=== PATIENT | male | born 1975 ===

== ENCOUNTER 2021-01-24 09:06 | Inpatient (IN) | payer OTHER ==
[~2021-01-24] VITALS: Ht 175.3 cm; Wt 95.8 kg
[2021-01-24 10:22] LABS: BASOPHILS ABSOLUTE AUTO 0.05 K/mm3 (0.00-0.23); BASOPHILS PERCENT AUTO 1 % (0-2); EOSINOPHILS ABSOLUTE AUTO 0.07 K/mm3 (0.00-0.68); EOSINOPHILS PERCENT AUTO 1 % (0-6); Hematocrit 45.7 % (37.0-53.0); Hemoglobin 15.9 g/dL (13.5-17.5); IMMATURE GRAN ABSOLUTE AUTO 0.02 K/mm3 (0.00-0.10); IMMATURE GRAN PERCENT AUTO 0 % (0-1); LYMPHOCYTES ABSOLUTE AUTO 2.35 K/mm3 (0.84-5.20); LYMPHOCYTES PERCENT AUTO 37 % (21-46); MONOCYTES PERCENT AUTO 6 % (4-13); Mean Corpuscular HGB 30.1 pg (26.0-34.0); Mean Corpuscular HGB Conc 34.8 g/dL (31.5-36.5); Mean Corpuscular Volume 86 fL (80-100); Mean Platelet Volume 9.6 fL (9.1-12.4); NEUTROPHILS ABSOLUTE AUTO 3.52 K/mm3 (1.96-9.15); NEUTROPHILS PERCENT AUTO 55 % (41-73); Platelet Count 302 K/mm3 (150-400); RDW Standard Deviation 37.7 fL (35.1-46.3); Red Blood Cell Count 5.29 M/mm3 (4.30-5.90); White Blood Cell Count 6.41 K/mm3 (4.00-11.30)
[2021-01-24 10:33] LABS: Alanine Aminotransfer (ALT/SGP 47 U/L (12-78); Alk Phos 137 U/L (50-136); Anion Gap 8 mmol/L (6-16); Aspartate Aminotrans (AST/SGOT 17 U/L (12-37); Bilirubin, Total 0.4 mg/dL (0.1-1.0); Blood Urea Nitrogen 13 mg/dL (8-24); Bun/Creatinine Ratio 19.5 (12.0-20.0); CO2, Blood 23 mmol/L (21-32); Calcium, Blood 8.9 mg/dL (8.5-10.1); Chloride, Blood 100 mmol/L (98-108); Creatinine, Blood 0.67 mg/dL (0.60-1.20); Glomerular Filtration Rate >60 (60-); Glucose, Blood 367 mg/dL (70-99); Potassium, Blood 4.1 mmol/L (3.5-5.5); Sodium, Blood 131 mmol/L (136-145); Troponin I 0.082 ng/mL (0.000-0.040)
[2021-01-24 13:13] LABS: SARS-Cov-2 (COVID-19) PCR, MMC NEGATIVE (NEGATIVE)
[2021-01-24 13:43] LABS: U Amphetamine Screen Not Detected; U Barbituate Screen Not Detected; U Benzodiazapine Screen Not Detected; U Buprenorphine Screen Not Detected; U Cannabinoids Screen Not Detected; U Cocaine Screen Not Detected; U Methadone Screen Not Detected; U Methamphetamine Screen Not Detected; U Opiates Screen Not Detected; U Oxycodone Screen Not Detected; U Phencyclidine Screen Not Detected; U Propoxyphene Screen Not Detected
[2021-01-24 14:23] LABS: International Normalized Ratio 0.94; Prothrombin Time Results 10.2 Sec (9.7-11.5)
--- NOTE | 2021-01-24 20:28 | NUR ---
RECEIVED REPORT FROM CELI SANCHEZ AT 1435; PT ARRIVED AT 1610 TO PCU ROOM 9 VIA BED ACCOMPANIED BY SENIOR ADMINISTRATIVE SUPPORT RN X2 AND PT'S AND PERSONAL EFFECTS; PT ON RA RECEIVING FLUIDS AND CONNECTED TO TELEMETRY MONITORING; PT DENIES DIFFICULTY BREATHING OR CHEST PAIN; PT 95KG AND 5'9"; PT RECOVERED IN PCU; R RADIAL ANGIO SITE WDL EACH TIME ASSESSED; TR BAND AIR VOLUME INCREMENTALLY REDUCED; 3ML AIR VOLUME REMAINING AT 1999; PT GIVEN EXTENSIVE CARDIAC EDUCATION AT THE BEDSIDE WITH AT BEDSIDE; PT DENIES ADDITIONAL CONCERNS AT THIS TIME.
--- NOTE | 2021-01-24 22:15 | NUR ---
REMAINING 3ML OF AIR IN TR BAND REMOVED AT APPROXIMETLY 2130. NO SIGNS OF BLEEDING SO TR BAND REMOVED AFTER 30 MIN AT 2300. SITE C/D/I. PULSE STRONG. VSS. WILL CONTINUE TO MONITOR.
[2021-01-25 04:10] LABS: BASOPHILS ABSOLUTE AUTO 0.03 K/mm3 (0.00-0.23); BASOPHILS PERCENT AUTO 1 % (0-2); EOSINOPHILS ABSOLUTE AUTO 0.09 K/mm3 (0.00-0.68); EOSINOPHILS PERCENT AUTO 2 % (0-6); Hemoglobin 14.8 g/dL (13.5-17.5); IMMATURE GRAN ABSOLUTE AUTO 0.01 K/mm3 (0.00-0.10); IMMATURE GRAN PERCENT AUTO 0 % (0-1); LYMPHOCYTES ABSOLUTE AUTO 2.17 K/mm3 (0.84-5.20); LYMPHOCYTES PERCENT AUTO 36 % (21-46); MONOCYTES ABSOLUTE AUTO 0.45 K/mm3 (0.16-1.47); MONOCYTES PERCENT AUTO 8 % (4-13); Mean Corpuscular HGB 29.4 pg (26.0-34.0); Mean Corpuscular HGB Conc 34.4 g/dL (31.5-36.5); Mean Corpuscular Volume 86 fL (80-100); Mean Platelet Volume 9.3 fL (9.1-12.4); NEUTROPHILS ABSOLUTE AUTO 3.29 K/mm3 (1.96-9.15); NEUTROPHILS PERCENT AUTO 54 % (41-73); Platelet Count 277 K/mm3 (150-400); RDW Coefficient Variation 11.9 % (11.7-14.2); Red Blood Cell Count 5.03 M/mm3 (4.30-5.90); White Blood Cell Count 6.04 K/mm3 (4.00-11.30)
[2021-01-25 04:34] LABS: Anion Gap 5 mmol/L (6-16); Blood Urea Nitrogen 8 mg/dL (8-24); CHOL/HDL RATIO 3.5; CO2, Blood 26 mmol/L (21-32); Calcium, Blood 8.1 mg/dL (8.5-10.1); Chloride, Blood 103 mmol/L (98-108); Cholesterol 176 mg/dL (50-200); Creatinine, Blood 0.73 mg/dL (0.60-1.20); Glomerular Filtration Rate >60 (60-); Glucose, Blood 231 mg/dL (70-99); HDL Cholesterol 51 mg/dL (>39); LDL/HDL RATIO 1.8; Low Density Lipoprotein Chol 93 mg/dL (0-110); Potassium, Blood 3.8 mmol/L (3.5-5.5); Sodium, Blood 134 mmol/L (136-145); Triglycerides 161 mg/dL (30-160); Very Low Density Lipoprot Chol 32 mg/dL (6-32)
--- NOTE | 2021-01-25 05:28 | NUR ---
SHIFT SUMMARY PATIENT FOUND TO BE A PLEASANT MAN WHO IS A&OX4, TY, AND FOLLOWING COMMANDS. VSS. STILL WITH TWO MORE HOURLY VS CHECKS FROM CATH PROCEDURE. 3ML OF AIR REMAINED IN R RADIAL ENTRY SITE TR BAND UPON START OF SHIFT AND WAS REMOEVED AT 2200 WITH NO SIGNS OF BLEEDING OR HEMATOMA. RIGHT RADIAL PULSE STRONG, GOOD COLOR TO HAND AND FULL SENSATION INTACT. DRESSING AND ARM BOARD IN PLACE. AT BEDSIDE. ON RA. NSR ON THE MONITOR. NO CHEST PAIN NOTED. VOIDING WELL PER URINAL. EDUCATED ON RAFIQ DIABETIC DIET AND FEELS STILL HUNGRY AFTER DINNER. SNACK GIVEN AND BEEN RESTING COMFORTABLY SINCE. NO CONCERNS AT THIS TIME. WILL CONTINUE TO MONITOR UNTIL DAY SHIFT RN ASSUMES CARE.
[2021-01-25] MEDS ORDERED: Aspirin EC81 MG PO (12:43)
[2021-01-25] MEDS ORDERED: ACET325 PO (12:43)
[2021-01-25] MEDS ORDERED: ATOR40TA PO (12:44)
[2021-01-25] MEDS ORDERED: CLOP75 PO (12:45)
[2021-01-25] MEDS ORDERED: METO25ER PO (12:46)
[2021-01-25] MEDS ORDERED: GLUCOTROL5 MG PO (12:46)
[2021-01-25] MEDS ORDERED: METF500 PO (12:47)
--- NOTE | 2021-01-25 14:03 | NUR ---
PATIENT AND PATIENT'S SPOUSE PROVIDED DISCHARGE INFO REGARDING FOLLOW UP PLANS, REASONS TO RETURN TO THE HOSPITAL, POST-ANGIO RADIAL SITE CARE AND PRECAUTIONS, AND MEDICATION INFORMATION. PATIENT AND PATIENT'S SPOSUE VERBALIZED UNDERSTANDING, NO SIGNS OF ACUTE DISTRESS. NO DISCHARGE/HEMATOMA NOTED AT RADIAL SITE. PATIENT DENIES CHEST PAIN THIS SHIFT, VSS. PATIENT ABLE TO AMBULATE TO PERSONAL VEHICLE WITH SPOUSE TO PROVIDE RIDE.
== END 2021-01-25 13:32 | disposition home or self-care (01) | DRG 247 ==
LOC: ER 09:06 → PCU 12:10 → ERHOLD 12:10 → PCU 15:58
PROVIDERS: Emergency Medicine; Nurse Practitioner Acute Care; Pharmacist; ADMIT Internal Medicine
PROC: 027034Z Dilation of Coronary Artery, One Artery with Drug-eluting Intraluminal Device, Percutaneous Approach (ICD-10-PCS; principal; 2021-01-24)
PROC: 4A023N7 Measurement of Cardiac Sampling and Pressure, Left Heart, Percutaneous Approach (ICD-10-PCS; 2021-01-24)
PROC: B2111ZZ Fluoroscopy of Multiple Coronary Arteries using Low Osmolar Contrast (ICD-10-PCS; 2021-01-24)
PROC: B245ZZ3 Ultrasonography of Left Heart, Intravascular (ICD-10-PCS; 2021-01-24)
DX: I21.4 Non-ST elevation (NSTEMI) myocardial infarction (principal); Z20.822 Contact with and (suspected) exposure to COVID-19; I10 Essential (primary) hypertension; E11.9 Type 2 diabetes mellitus without complications; E78.5 Hyperlipidemia, unspecified
CPT/HCPCS: 36415; 71045; 76937; 80048; 80053; 80061; 82947; 83036; 83735; 84484; 85025; 85347; 85379; 85610; 85730; 92978; 93005; 93010; 93306; 93458; 96374; 99152; 99153; 99285-25; A9270; C1725; C1753; C1769; C1874; C1887; C1894; C9600; J1644; J2250; J3010; J7030; J7050; Q9967; U0004

== ENCOUNTER 2021-02-19 11:04 | Emergency (ER) | payer OTHER ==
[~2021-02-19] VITALS: Ht 175.3 cm; Wt 92.5 kg
[~2021-02-19 11:04] MED LIST: ACET325 PO; ATOR40TA PO; Aspirin EC81 MG PO; CLOP75 PO; GLUCOTROL5 MG PO; METF500 PO; METO25ER PO
[2021-02-19 12:06] LABS: BASOPHILS ABSOLUTE AUTO 0.04 K/mm3 (0.00-0.23); BASOPHILS PERCENT AUTO 1 % (0-2); EOSINOPHILS ABSOLUTE AUTO 0.06 K/mm3 (0.00-0.68); EOSINOPHILS PERCENT AUTO 2 % (0-6); Hematocrit 42.3 % (37.0-53.0); Hemoglobin 14.4 g/dL (13.5-17.5); IMMATURE GRAN ABSOLUTE AUTO 0.01 K/mm3 (0.00-0.10); IMMATURE GRAN PERCENT AUTO 0 % (0-1); LYMPHOCYTES ABSOLUTE AUTO 1.13 K/mm3 (0.84-5.20); LYMPHOCYTES PERCENT AUTO 28 % (21-46); MONOCYTES ABSOLUTE AUTO 0.36 K/mm3 (0.16-1.47); MONOCYTES PERCENT AUTO 9 % (4-13); Mean Corpuscular HGB 29.8 pg (26.0-34.0); Mean Corpuscular Volume 87 fL (80-100); Mean Platelet Volume 9.3 fL (9.1-12.4); NEUTROPHILS ABSOLUTE AUTO 2.42 K/mm3 (1.96-9.15); NEUTROPHILS PERCENT AUTO 60 % (41-73); Platelet Count 280 K/mm3 (150-400); RDW Coefficient Variation 11.9 % (11.7-14.2); RDW Standard Deviation 38.2 fL (35.1-46.3); Red Blood Cell Count 4.84 M/mm3 (4.30-5.90); White Blood Cell Count 4.02 K/mm3 (4.00-11.30)
[2021-02-19 12:16] LABS: Alanine Aminotransfer (ALT/SGP 42 U/L (12-78); Alk Phos 86 U/L (50-136); Anion Gap 7 mmol/L (6-16); Aspartate Aminotrans (AST/SGOT 22 U/L (12-37); Bilirubin, Total 0.4 mg/dL (0.1-1.0); Blood Urea Nitrogen 13 mg/dL (8-24); Bun/Creatinine Ratio 15.9 (12.0-20.0); CO2, Blood 23 mmol/L (21-32); Calcium, Blood 9.1 mg/dL (8.5-10.1); Chloride, Blood 109 mmol/L (98-108); Creatinine, Blood 0.82 mg/dL (0.60-1.20); Globulin, Blood 3.9 g/dL (2.2-4.0); Glomerular Filtration Rate >60 (60-); Glucose, Blood 157 mg/dL (70-99); Potassium, Blood 3.9 mmol/L (3.5-5.5); Sodium, Blood 139 mmol/L (136-145); Total Protein, Blood 7.9 g/dL (6.4-8.2); Troponin I <0.015 ng/mL (0.000-0.040)
== END 2021-02-19 15:57 | disposition home or self-care (01) ==
LOC: ER 11:04
PROVIDERS: Physician Assistant
DX: R07.9 Chest pain, unspecified (principal); Z86.79 Personal history of other diseases of the circulatory system; Z79.82 Long term (current) use of aspirin; Z79.02 Long term (current) use of antithrombotics/antiplatelets
CPT/HCPCS: 36415; 71046; 80053; 83690; 84484; 85025; 93005; 93010; 99285-25; A9270

== ENCOUNTER 2022-07-18 14:15 | Emergency (ER) | payer OTHER ==
[~2022-07-18] VITALS: Ht 175.3 cm; Wt 97.5 kg
[2022-07-18] MEDS ORDERED: Percocet 5-3251 EACH PO (17:31)
[2022-07-18] MEDS ORDERED: LIDO700A20 TOP (17:31)
== END 2022-07-18 17:51 | disposition home or self-care (01) ==
LOC: ER 14:15
DX: M54.16 Radiculopathy, lumbar region (principal); Z79.899 Other long term (current) drug therapy; Z79.82 Long term (current) use of aspirin; Z79.84 Long term (current) use of oral hypoglycemic drugs
CPT/HCPCS: 96372; 99283-25

== ENCOUNTER → 2023-07-21 | Outpatient (CLI) | payer OTHER ==
[~2023-07-21] MED LIST changes: +LIDO700A20 TOP; +Percocet 5-3251 EACH PO
[2023-07-21 12:26] LABS: Microalb/Creat Ratio UR, Rand 3.689 mg/g (0.000-30.000); Microalbumin, Random Urine 8.19 mg/L (0.000-20.000)
== END ==
LOC: LAB 10:28 → LAB SHORT 10:28
PROVIDERS: Family Medicine
DX: E11.9 Type 2 diabetes mellitus without complications (principal)
CPT/HCPCS: 82043; 82570